=== PATIENT | male | born 1970 | race Caucasian/White ===

== ENCOUNTER 2020-09-08 19:22 | Inpatient (IN) | payer OTHER ==
[~2020-09-08] VITALS: Ht 182.9 cm; Wt 81.5 kg
[2020-09-08] MEDS ORDERED: NS 1,000 ML IV ONE (20:30)
[2020-09-08] MEDS ORDERED: MORPHINE 4 MG/ML 1ML VIAL/SYRINGE (J2270) IV ONE (20:30)
[2020-09-08 20:55] LABS: BASO % 0.4 % (0.0-1.0); EOS # 0.1 10^3/uL (0.0-0.5); EOS % 1.5 % (0.0-3.0); HEMATOCRIT 40.9 % (42.0-52.0); HEMOGLOBIN 14.1 g/dl (13.5-17.5); LYMPH # 1.3 10^3/uL (1.5-5.0); LYMPH % 19.4 % (24.0-44.0); MEAN CORPUSCULAR HEMOGLOBIN 32.3 pg (27.0-33.0); MEAN CORPUSCULAR HGB CONC 34.5 g/dl (32.0-36.5); MEAN CORPUSCULAR VOLUME 93.6 fl (80.0-96.0); MONO # 0.8 10^3/uL (0.0-0.8); MONO % 11.2 % (0.0-5.0); NEUTROPHILS # 4.6 10^3/uL (1.5-8.5); NEUTROPHILS % 67.2 % (36.0-66.0); PLATELET COUNT, AUTOMATED 251 10^3/uL (150-450); RED BLOOD COUNT 4.37 10^6/uL (4.30-6.10); WHITE BLOOD COUNT 6.8 10^3/uL (4.0-10.0)
[2020-09-08 21:14] LABS: ERYTHROCYTE SEDIMENTATION RATE 18 mm/hr (0-20)
[2020-09-08 21:25] LABS: ALBUMIN 3.6 GM/DL (3.2-5.2); ALT/SGPT 74 U/L (12-78); BILIRUBIN,DIRECT 0.2 MG/DL (0.0-0.2); BILIRUBIN,TOTAL 0.4 MG/DL (0.2-1.0); BLOOD UREA NITROGEN 17 MG/DL (7-18); C REACTIVE PROTEIN QUANTITATIV 1.96 MG/DL (0.00-0.30); CARBON DIOXIDE LEVEL 28 MEQ/L (21-32); CHLORIDE LEVEL 109 MEQ/L (98-107); CREATININE FOR GFR 1.13 MG/DL (0.70-1.30); GLOMERULAR FILTRATION RATE > 60.0 (>56); GLUCOSE, FASTING 117 MG/DL (70-100); POTASSIUM SERUM 3.7 MEQ/L (3.5-5.1); SODIUM LEVEL 141 MEQ/L (136-145); TOTAL PROTEIN 6.3 GM/DL (6.4-8.2)
--- NOTE | 2020-09-08 22:16 | REPVR ---
PROCEDURE INFORMATION: Exam: US Scrotum Exam date and time: 09/08/2020 9:25 PM Age: 50 years old Clinical indication: Groin pain and scrotum pain; Additional info: Swelling left testicle/groin/induration/discharge ? abscess TECHNIQUE: Imaging protocol: Real-time ultrasound of the scrotum and contents with color Doppler and image documentation. COMPARISON: No relevant prior studies available. FINDINGS: Right testicle: Normal measuring 4.8 x 2.5 x 3.0 cm. No mass. No torsion. Normal vascular flow. Left testicle: Normal measuring 4.2 x 2.7 x 2.7 cm. No mass. No torsion. Normal vascular flow. Epididymides: Right epididydmal multiple cysts largest cyst is measuring 8.6 mm . Superior to left testicle, multiple anechoic structures are seen largest 1 is measuring 5.6 x 1.8 x 3.7 cm with some internal mobile debris. Findings may represent spur mild to see with superimposed infection , clinical correlation and follow-up is recommended. Scrotum: Right scrotal wall is normal measuring 3.2 mm. Thickened left scrotal wall measuring 6.2 mm representing cellulitis. IMPRESSION: Superior to left testicle, multiple anechoic structures are seen largest 1 is measuring 5.6 x 1.8 x 3.7 cm with some internal mobile debris. Findings may represent spur mild to see with superimposed infection, clinical correlation and follow-up is recommended. Thickened left scrotal wall measuring 6.2 mm representing cellulitis. Electronically signed by: Teresa Erickson On 09/08/2020 22:16:02 PM
[2020-09-08] MEDS ORDERED: ERTAPENEM SODIUM 1 GM in NS MINI-BAG PLUS 50 ML IV ONE (23:00)
[2020-09-08] MEDS ORDERED: IBUP-1720 PO (23:16)
[2020-09-08] MEDS ORDERED: MEROPENEM INJ 2 GM in NS 100 ML IV SCH (23:45)
--- NOTE | 2020-09-08 23:46 | HPEPDOC ---
[facility] Medical History & Physical Date of Admission Sep 08, 2020 Date of Service: Sep 08, 2020 History and Physical Chief complaint: Who presents to the ER with left groin pain History of present illness: Patient is a 50-year-old male with no significant past medical history who is presented to the emergency room with left groin pain for the last 2-3 days. Patient reports that yesterday he began to notice swelling on the left side of the scrotum and groin. Patient noted that the area has become red and uncomfortable and has begun to experience some drainage/oozing. Patient denies any discomfort with urination or any penile discharge. Patient has not experience any prior skin infections and has not been on any antibiotics recently. Patient denies any headache but does experience some nausea and has had one episode of vomiting without any blood. Patient denies any chest pain, shortness of breath, cough, palpitations, abdominal pain, constipation or diarrhea. Patient reports his appetite has been fluctuating but denies any changes in his weight. 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 Review of Systems: 10 point review of systems complete, all negative otherwise stated in HPI Physical exam: - Vitals: BP [133/86], HR [91], RR [16], Sat [98%RA], Temp [97.9F] - General: Lying in bed, No acute distress, Speaking in full sentences, AAOx3 - HEENT: NC, AT, PERRLA - CVS: RRR, +S1S2 - Lungs: Fair air entry bilaterally, No appreciable wheezing / rales / rhonchi - Abdomen: Soft, Non-distended, Non-tender - : Left groin with area of induration / warmth / tenderness / drainage (serosanginous); scrotum without any significant tenderness on palpation / mild swelling on left lateral side - Extremities: No lower extremity edema, No calf tenderness - Neuro: No focal motor or sensory deficit - Skin: No visible rashes Labs: See below Imaging: Scrotal US 12/2: 1. Superior to left testicle, multiple anechoic structures are seen largest 1 is measuring 5.6 x 1.8 x 3.7 cm with some internal mobile debris. Findings may represent spur mild to see with superimposed infection, clinical correlation and follow-up is recommended. 2. Thickened left scrotal wall measuring 6.2 mm representing cellulitis. EKG: See below Assessment and Plan: Left groin abscess / cellulitis - Patient has reported groin pain, redness and discharge over the last 2-3 days - Patient remains hemodynamically stable and afebrile - Physical reveals area of induration, warmth and tenderness of his left groin - No leukocytosis - Imaging noted above - Will check lactic acid / Procalcitonin / blood cultures / MRSA screen / Wound cultures - Consulted Urology, Dr. Bowers; Case discussed; will keep NPO for likely drainage in AM and cover with broad spectrum antibiotics - Will cover with broad spectrum antibiotics; Vancomycin and Meropenem DVT prophylaxis - Will start Heparin Vital Signs Vital Signs Date Time Temp Pulse Resp B/P (MAP) Pulse Ox O2 Delivery O2 Flow Rate FiO2 09/08/20 21:00 97.9 91 16 133/86 98 Room Air Laboratory Data Labs 24H Laboratory Tests 2 09/08/20 19:37: Urine Color YELLOW, Urine Appearance HAZY, Urine pH 5.0, Urine Specific [place] 1.023, Urine Protein NEGATIVE, Urine Glucose (UA) NEGATIVE, Urine Ketones NEGATI VE, Urine Blood NEGATIVE, Urine Nitrite NEGATIVE, Urine Bilirubin NEGATIVE, Urine Urobilinogen 2.0H, Urine Leukocyte Esterase NEGATIVE, Urine WBC (Auto) 1, Urine RBC (Auto) 0, Urine Hyaline Casts (Auto) 1, Urine Bacteria (Auto) NEGATIVE, Urine Squamous Epithelial Cells 0, Urine Mucus (Auto) SMALL, Urine Sperm (Auto) 09/08/20 20:33: Immature Granulocyte % (Auto) 0.3, Neutrophils (%) (Auto) 67.2H, Lymphocytes (%) (Auto) 19.4L, Monocytes (%) (Auto) 11.2H, Eosinophils (%) (Auto) 1.5, Basophils (%) (Auto) 0.4, Neutrophils # (Auto) 4.6, Lymphocytes # (Auto) 1.3L, Monocytes # (Auto) 0.8, Eosinophils # (Auto) 0.1, Basophils # (Auto) 0.0, Nucleated Red Blood Cells % (auto) 0.0, Erythrocyte Sedimentation Rate 18, Anion Gap 4L, Glomerular Filtration Rate > 60.0, Lactic Acid Level 1.1, Calcium Level 9.0, Total Bilirubin 0.4, Direct Bilirubin 0.2, Aspartate Amino Transf (AST/SGOT) 27, Alanine Aminotransferase (ALT/SGPT) 74, Alkaline Phosphatase 116, C-Reactive Protein, Quantitative 1.96H, Total Protein 6.3L, Albumin 3.6, Albumin/Globulin Ratio 1.3 CBC/BMP Laboratory Tests 09/08/20 20:33 Microbiology Microbiology 09/08/20 Blood Culture, Received Pending 09/08/20 Gram Stain, Received Pending 09/08/20 Wound Culture, Received Pending 09/08/20 Blood Culture, Received Pending Home Medications Scheduled PRN Ibuprofen (Ibuprofen) 200 Mg Tablet, 400 MG PO Q6H PRN for PAIN Allergies Coded Allergies: No Known Allergies (Unverified , 09/08/20) JOHN ACUNA MD Sep 08, 2020 23:46
[2020-09-09] VITALS (8 sets, daily range): BP systolic 102–119; BP diastolic 63–79
[2020-09-09] MEDS ORDERED: VANCOMYCIN HCL 1,000 MG, VIAL MATE ADAPTER 1 EACH in D5W 250 ML IV ONE ×4 (02:00)
[2020-09-09] MEDS: HEPARIN SOD (PORCINE) 5000UNITS/ML 1ML VIAL/SYRINGE SC SCH ×5 (03:10→22:18)
[2020-09-09] MEDS: ACETAMINOPHEN TAB 650MG DOSE (2X325MG) PO PRN (03:43)
[2020-09-09 06:27] LABS: BASO % 0.6 % (0.0-1.0); EOS # 0.1 10^3/uL (0.0-0.5); EOS % 1.4 % (0.0-3.0); HEMATOCRIT 38.2 % (42.0-52.0); HEMOGLOBIN 12.9 g/dl (13.5-17.5); LYMPH # 0.9 10^3/uL (1.5-5.0); LYMPH % 17.9 % (24.0-44.0); MEAN CORPUSCULAR HEMOGLOBIN 32.1 pg (27.0-33.0); MEAN CORPUSCULAR HGB CONC 33.8 g/dl (32.0-36.5); MONO # 0.5 10^3/uL (0.0-0.8); MONO % 10.8 % (0.0-5.0); NEUTROPHILS # 3.4 10^3/uL (1.5-8.5); NEUTROPHILS % 68.9 % (36.0-66.0); PLATELET COUNT, AUTOMATED 222 10^3/uL (150-450); RED BLOOD COUNT 4.02 10^6/uL (4.30-6.10)
[2020-09-09 06:46] LABS: HEMOGLOBIN A1c 5.1 %
[2020-09-09 06:50] LABS: BLOOD UREA NITROGEN 14 MG/DL (7-18); C REACTIVE PROTEIN QUANTITATIV 1.53 MG/DL (0.00-0.30); CALCIUM LEVEL 8.5 MG/DL (8.5-10.1); CARBON DIOXIDE LEVEL 27 MEQ/L (21-32); CHLORIDE LEVEL 109 MEQ/L (98-107); CHOLESTEROL LEVEL 179 MG/DL (<200); CHOLESTEROL RISK RATIO 4.162 (<5); CREATININE FOR GFR 0.88 MG/DL (0.70-1.30); GLOMERULAR FILTRATION RATE > 60.0 (>56); GLUCOSE, FASTING 86 MG/DL (70-100); HDL CHOLESTEROL 43 MG/DL (>40); LDL CHOLESTEROL 120 MG/DL (<100); MAGNESIUM LEVEL 2.3 MG/DL (1.8-2.4); NON-HDL-C 136 MG/DL; SODIUM LEVEL 141 MEQ/L (136-145); TRIGLYCERIDES LEVEL 81 MG/DL (<150)
--- NOTE | 2020-09-09 07:30 | SMCUROLCON ---
Urology Consultation General Date of Consultation 09/09/20 Reason For Consultation This patient is seen for Abcess/Cellulitis Of Groin. History of Present Illness The patient is a 50-year-old male with no past medical history for urologic or genital issues. He states that over the weekend, he began to notice some slight discomfort and a lump in the left groin. Over the next few days the growths in the left groin increased in size and became very uncomfortable yesterday with some slight drainage. For this reason he presented to the emergency room for evaluation and was subsequently admitted for abscess. 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 On examination, he also has a left spermatocele which he claims has not been there before last weekend. 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 Allergies: None Medications: None Smoke: Never * Smoker: non-smoker Drugs: denies Medications Current Medications Current Medications Medications (Trade) Dose Ordered Sig/Juanita Route PRN Reason Start Time Stop Time Status Last Admin Dose Admin Acetaminophen (Tylenol Tab) 650 mg Q4H PRN PO PAIN OR FEVER 09/08/20 23:45 09/09/20 03:43 Heparin Sodium (Porcine) (Heparin) 5,000 units Q8H SC 09/08/20 06:00 Home Med (Med Rec Complete!) ASDIRECTED XX 09/08/20 23:30 09/08/20 23:17 DC Meropenem 1 gm/IV Miscellaneous Supplies 50 ml @ 100 mls/hr Q8H IV 09/09/20 11:00 Meropenem 2 gm/ Sodium Chloride 100 ml @ 200 mls/hr Q8H IV 09/08/20 23:45 09/09/20 00:26 DC Vancomycin HCl 1000 mg/IV Miscellaneous Supplies 1 each/ Dextrose 270 ml @ 270 mls/hr Q12H IV 09/09/20 12:00 Allergies Allergies: Coded Allergies: No Known Allergies (Unverified , 09/08/20) Review of Systems General: Reports: Normal Appetite; Denies: Fatigue, Malaise Constitutional: Denies: Fever, Chills, Sweats, Weakness, Malaise Eyes: Denies: Pain, Vision change ENT: Denies: Head Aches, Sore Throat, Epistaxis Skin: Denies: Rash, Lesions, Breakdown, Nail Changes Pulmonary: Denies: Dyspnea, Cough Cardiovascular: Denies Chest Pain, Denies Palpitations Gastrointestinal: Denies: Nausea, Vomiting, Abdominal Pain Genitourinary: Denies: Dysuria, Frequency, Incontinence, Hematuria Hematologic: Denies: Bruising, Bleeding Excessively Endocrine: Denies: Polydipsia, Polyphagia, Polyuria Musculoskeletal: Denies: Neck Pain, Back Pain Neurological: Denies: Weakness, Numbness, Incoordination, Change in Speech Psych: Reports: Mood Normal; Denies: Anxiety, Depression Physical Examination General Exam: Alert, No Acute Distress EYE EXAM: PERRLA, Conjunctiva & lids normal, EOMI; No: Sclera icteric ENT EXAM: Atraumatic, Mucous membr. moist/pink, Pharynx Normal Neck Exam: Supple; No: JVD, thyromegaly Chest Exam: Clear to auscultation, Normal air movement Heart Exam: Rate Normal, Regular Rhythm, Normal S1, Normal S2; No: Murmurs, Rubs Abdomen Exam: Normal Bowel Sounds, Soft; No: Tenderness, Hepatospenomegaly Male Exam: Normal Genital Exam, Tenderness; No: Lesions, Edema, Erythema, Discharge, Mass, Hernia, Normal Sphincter Tone Male Exam Penis is circumcised Scrotum shows some left sciatica and enlargement from a spermatocele that is nontender. In the inferior portion of the scrotum, there is some skin thickening. Just lateral to the scrotum on the inner thigh and inguinal area there is some inflammation with abscess and a small amount of drainage from the swelling. Extremity Exam: Normal Pulses; No: Clubbing, Cyanosis, Edema Skin Exam: Nl turgor and temperature; No: Rash, Breakdown Neuro Exam: Normal Gait, Normal Speech, Cranial Nerves 3-12 NL, Reflexes 2+ Psych Exam: Mental status NL, Mood NL, Oriented x 3 Vital Signs/I&O Vital Signs Date Time Temp Pulse Resp B/P (MAP) Pulse Ox O2 Delivery O2 Flow Rate FiO2 09/09/20 06:00 98.7 69 18 113/77 (89) 97 09/09/20 02:55 Room Air I&O- Last 24 Hours up to 6 AM 09/09/20 05:59 Intake Total 1590 ml Output Total 400 ml Balance 1190 ml Laboratory Data 24H Labs Laboratory Tests 2 09/08/20 19:37: Urine Color YELLOW, Urine Appearance HAZY, Urine pH 5.0, Urine Specific [place] 1.023, Urine Protein NEGATIVE, Urine Glucose (UA) NEGATIVE, Urine Ketones NEGATIVE, Urine Blood NEGATIVE, Urine Nitrite NEGATIVE, Urine Bilirubin NEGATIVE, Urine Urobilinogen 2.0H, Urine Leukocyte Esterase NEGATIVE, Urine WBC (Auto) 1, Urine RBC (Auto) 0, Urine Hyaline Casts (Auto) 1, Urine Bacteria (Auto) NEGATIVE, Urine Squamous Epithelial Cells 0, Urine Mucus (Auto) SMALL, Urine Sperm (Auto) 09/08/20 20:33: Immature Granulocyte % (Auto) 0.3, Neutrophils (%) (Auto) 67.2H, Lymphocytes (%) (Auto) 19.4L, Monocytes (%) (Auto) 11.2H, Eosinophils (%) (Auto) 1.5, Basophils (%) (Auto) 0.4, Neutrophils # (Auto) 4.6, Lymphocytes # (Auto) 1.3L, Monocytes # (Auto) 0.8, Eosinophils # (Auto) 0.1, Basophils # (Auto) 0.0, Nucleated Red Blood Cells % (auto) 0.0, Erythrocyte Sedimentation Rate 18, Anion Gap 4L, Glomerular Filtration Rate > 60.0, Lactic Acid Level 1.1, Calcium Level 9.0, Total Bilirubin 0.4, Direct Bilirubin 0.2, Aspartate Amino Transf (AST/SGOT) 27, Alanine Aminotransferase (ALT/SGPT) 74, Alkaline Phosphatase 116, C-Reactive Protein, Quantitative 1.96H, Total Protein 6.3L, Albumin 3.6, Albumin/Globulin Ratio 1.3 09/08/20 23:30: Coronavirus (COVID-19)(PCR) NEGATIVE 09/08/20 23:58: 09/09/20 03:46: Methicillin-Resist S.aureus DNA PCR NOT DETECTED 09/09/20 05:29: Immature Granulocyte % (Auto) 0.4, Neutrophils (%) (Auto) 68.9H, Lymphocytes (%) (Auto) 17.9L, Monocytes (%) (Auto) 10.8H, Eosinophils (%) (Auto) 1.4, Basophils (%) (Auto) 0.6, Neutrophils # (Auto) 3.4, Lymphocytes # (Auto) 0.9L, Monocytes # (Auto) 0.5, Eosinophils # (Auto) 0.1, Basophils # (Auto) 0.0, Nucleated Red Blood Cells % (auto) 0.0, Anion Gap 5L, Glomerular Filtration Rate > 60.0, Estimated Mean Plasma Glucose 100, Hemoglobin A1c 5.1, Calcium Level 8.5, Magnesium Level 2.3, C-Reactive Protein, Quantitative 1.53H, Triglycerides Level 81, Total Cholesterol 179, LDL Cholesterol 120H, Non-HDL Cholesterol (LDL + VLDL) 136, Total HDL Cholesterol 43, Cholesterol/HDL Ratio 4.162 CBC/BMP Laboratory Tests 09/08/20 20:33 09/09/20 05:29 Microbiology Microbiology 09/08/20 Blood Culture, Received Pending 09/08/20 Gram Stain, Received Pending 09/08/20 Wound Culture, Received Pending 09/08/20 Blood Culture, Received Pending Assessment 1. Left groin abscess The abscess is draining slightly now but will need to be incised and drained in the operating room later today. In the meantime, the patient will continue antibiotics 2. Left spermatocele At this point, I'm not convinced that the spermatoceles part of the in flammation process. It will be drained while in the operating room. If the fluid is normal no further action will be taken. If the fluid appears infected, he will need a spermatocelectomy at the same time. Plan I'll take the patient to the operating room later this afternoon for incision and drainage of the left groin abscess, aspiration of spermatocele and possible spermatocelectomy. In the meantime, the patient will stay on his IV antibiotics and intravenous fluids will be started. Time Spent on Consult: Time Spent / Consult (Minutes): 60 JORGE L JAMES MD Sep 09, 2020 07:30
[2020-09-09] MEDS ORDERED: ceFAZolin SOD 2 GM in IV 1 EA IV ONE (08:00)
[2020-09-09] MEDS: LR 1,000 ML IV SCH (08:06)
[2020-09-09] MEDS: VANCOMYCIN HCL 1,000 MG, VIAL MATE ADAPTER 1 EACH in D5W 250 ML IV SCH ×2 (11:57→23:39)
[2020-09-09] MEDS: MEROPENEM INJ 1 GM in IV 1 EA IV SCH ×2 (13:14→20:12)
--- NOTE | 2020-09-09 15:22 | IPNPDOC ---
Date Seen The patient was seen on 09/09/20. Progress Note SUBJECTIVE: OBJECTIVE Physical exam: Vitals: Please see below General: Lying in bed, No acute distress, Speaking in full sentences, AAOx3 HEENT: NC, AT, PERRLA CVS: RRR, +S1S2 Lungs: Fair air entry bilaterally, No appreciable wheezing / rales / rhonchi Abdomen: Soft, Non-distended, Non-tender : Left groin with area of induration, erythema and tenderness- slightly improved . No incr drainage ; scrotum without any significant tenderness on palpation / mild swelling on left lateral side Extremities: No lower extremity edema, No calf tenderness Neuro: No focal motor or sensory deficit Skin: No visible rashes Labs: See below Imaging: Scrotal US 09/08: 1. Superior to left testicle, multiple anechoic structures are seen largest 1 is measuring 5.6 x 1.8 x 3.7 cm with some internal mobile debris. Findings may represent spur mild to see with superimposed infection, clinical correlation and follow-up is recommended. 2. Thickened left scrotal wall measuring 6.2 mm representing cellulitis. ASSESSMENT AND PLAN: #Left groin abscess / cellulitis -Pain controlled, erythema and induration improved -WBC wnl - Imaging noted above - F/u blood cultures / MRSA screen / Wound cultures - Urology, Dr. Bowers consulted and will take to OR today - C/w Vancomycin and Meropenem, pain control #Left spermatocele -To be drained in OR also -Per urology, if the fluid appears infected, he will need a spermatocelectomy at the same time. #DVT prophylaxis - Will start Heparin DISPOSITION: OR today. Plan is discharge home when medically improved VS, I&O, 24H, [place] Vital Signs/I&O Vital Signs Date Time Temp Pulse Resp B/P (MAP) Pulse Ox O2 Delivery O2 Flow Rate FiO2 09/09/20 13:46 98.0 77 17 116/77 (90) 96 Room Air I&O- Last 24 Hours up to 6 AM 09/09/20 06:00 Intake Total 1590 ml Output Total 600 ml Balance 990 ml Laboratory Data 24H LABS Laboratory Tests 2 09/08/20 19:37: Urine Color YELLOW, Urine Appearance HAZY, Urine pH 5.0, Urine Specific [place] 1.023, Urine Protein NEGATIVE, Urine Glucose (UA) NEGATIVE, Urine Ketones NEGATIVE, Urine Blood NEGATIVE, Urine Nitrite NEGATIVE, Urine Bilirubin NEGATIVE, Urine Urobilinogen 2.0H, Urine Leukocyte Esterase NEGATIVE, Urine WBC (Auto) 1, Urine RBC (Auto) 0, Urine Hyaline Casts (Auto) 1, Urine Bacteria (Auto) NEGATIVE, Urine Squamous Epithelial Cells 0, Urine Mucus (Auto) SMALL, Urine Sperm (Auto) 09/08/20 20:33: Immature Granulocyte % (Auto) 0.3, Neutrophils (%) (Auto) 67.2H, Lymphocytes (%) (Auto) 19.4L, Monocytes (%) (Auto) 11.2H, Eosinophils (%) (Auto) 1.5, Basophils (%) (Auto) 0.4, Neutrophils # (Auto) 4.6, Lymphocytes # (Auto) 1.3L, Monocytes # (Auto) 0.8, Eosinophils # (Auto) 0.1, Basophils # (Auto) 0.0, Nucleated Red Blood Cells % (auto) 0.0, Erythrocyte Sedimentation Rate 18, Anion Gap 4L, Glomerular Filtration Rate > 60.0, Lactic Acid Level 1.1, Calcium Level 9.0, Total Bilirubin 0.4, Direct Bilirubin 0.2, Aspartate Amino Transf (AST/SGOT) 27, Alanine Aminotransferase (ALT/SGPT) 74, Alkaline Phosphatase 116, C-Reactive Protein, Quantitative 1.96H, Total Protein 6.3L, Albumin 3.6, Albumin/Globulin Ratio 1.3 09/08/20 23:30: Coronavirus (COVID-19)(PCR) NEGATIVE 09/08/20 23:58: Procalcitonin <0.05 09/09/20 03:46: Methicillin-Resist S.aureus DNA PCR NOT DETECTED 09/09/20 05:29: Immature Granulocyte % (Auto) 0.4, Neutrophils (%) (Auto) 68.9H, Lymphocytes (%) (Auto) 17.9L, Monocytes (%) (Auto) 10.8H, Eosinophils (%) (Auto) 1.4, Basophils (%) (Auto) 0.6, Neutrophils # (Auto) 3.4, Lymphocytes # (Auto) 0.9L, Monocytes # (Auto) 0.5, Eosinophils # (Auto) 0.1, Basophils # (Auto) 0.0, Nucleated Red Blood Cells % (auto) 0.0, Anion Gap 5L, Glomerular Filtration Rate > 60.0, Estimated Mean Plasma Glucose 100, Hemoglobin A1c 5.1, Calcium Level 8.5, Magnesium Level 2.3, C-Reactive Protein, Quantitative 1.53H, Triglycerides Level 81, Total Cholesterol 179, LDL Cholesterol 120H, Non-HDL Cholesterol (LDL + VLDL) 136, Total HDL Cholesterol 43, Cholesterol/HDL Ratio 4.162 CBC/BMP Laboratory Tests 09/08/20 20:33 09/09/20 05:29 Microbiology Microbiology 09/08/20 Blood Culture, Received Pending 09/08/20 Gram Stain - Final, Resulted 09/08/20 Wound Culture, Resulted Pending 09/08/20 Blood Culture, Received Pending Current Medications Current Medications Medications (Trade) Dose Ordered Sig/Juanita Route PRN Reason Start Time Stop Time Status Last Admin Dose Admin Acetaminophen (Tylenol Tab) 650 mg Q4H PRN PO PAIN OR FEVER 09/08/20 23:45 09/09/20 03:43 Heparin Sodium (Porcine) (Heparin) 5,000 units Q8H SC 09/08/20 06:00 Home Med (Med Rec Complete!) ASDIRECTED XX 09/08/20 23:30 09/08/20 23:17 DC Lactated Ringer's 1,000 ml @ 30 mls/hr Q24H IV 09/09/20 07:45 09/09/20 08:06 Meropenem 1 gm/IV Miscellaneous Supplies 50 ml @ 100 mls/hr Q8H IV 09/09/20 11:00 09/09/20 13:14 Meropenem 2 gm/ Sodium Chloride 100 ml @ 200 mls/hr Q8H IV 09/08/20 23:45 09/09/20 00:26 DC Vancomycin HCl 1000 mg/IV Miscellaneous Supplies 1 each/ Dextrose 270 ml @ 270 mls/hr Q12H IV 09/09/20 12:00 09/09/20 11:57 Allergies Coded Allergies: No Known Allergies (Unverified , 09/08/20) Nunu Hatfield MD Sep 09, 2020 15:22
[2020-09-09] MEDS ORDERED: BACITRACIN OINTMENT 30GM TUBE As Ordered ONE (17:50)
[2020-09-09] MEDS ORDERED: LIDOCAINE 2% INJ 100 MG/5 ML SYRINGE As Ordered ONE (18:02)
[2020-09-09] MEDS ORDERED: ONDANSETRON 4MG/2ML VIAL As Ordered ONE (18:02)
[2020-09-09] MEDS ORDERED: dexameTHASONE 4 MG/ML 1ML VIAL (J1100 PER 1MG) As Ordered ONE (18:02)
[2020-09-09] MEDS ORDERED: propofoL 200 MG/20 ML VIAL As Ordered ONE (18:02)
[2020-09-09] MEDS ORDERED: fentaNYL 100 MCG/2 ML INJECTION (J3010) As Ordered ONE (18:02)
[2020-09-09] MEDS ORDERED: MIDAZOLAM INJ 2MG/2ML VIAL (J2250 PER 1MG) As Ordered ONE (18:03)
[2020-09-09] MEDS ORDERED: LIDOCAINE 2% 100MG/5ML SDV (FOR ANES.) As Ordered ONE (18:04)
[2020-09-09] MEDS ORDERED: LIDOCAINE 5% OINT 30 GM As Ordered ONE (18:09)
[2020-09-09] MEDS ORDERED: BUPIVACAINE HCL 0.25% 30ML VIAL As Ordered ONE (18:24)
[2020-09-09] MEDS ORDERED: ACETAMINOPHEN 1000MG 100ML IV BTL (OFIRMEV) (J0131 PER 10MG) As Ordered ONE (18:40)
--- NOTE | 2020-09-09 19:03 | ROOPDOC ---
[facility] Report Of Operation Report of Operation DATE OF PROCEDURE: 09/09/20 PREPROCEDURE DIAGNOSES: Left groin abscess and possible infected spermatocele POSTPROCEDURE DIAGNOSES: Left groin abscess and sterile spermatocele PROCEDURE: Incision and drainage left groin abscess and spermatocele aspiration SURGEON: King Storey MD BLOOD BANK LABORATORY PROFESSIONAL: None ANESTHESIA: Gen. ESTIMATED BLOOD LOSS: Approximately less than 5 mL. COMPLICATIONS: None REMARKS: Specimen: Aerobic and anaerobic cultures from abscess cavity INDICATION FOR PROCEDURE: This is a 50-year-old white male with presented to the [facility] emergency room for evaluation of a draining left lump in the left inguinal area. This is found to be a left groin abscess. He also had a cystic structure in the scrotum that was thought by ultrasound to be infected. He is several back to the operating room for incision and drainage as well as aspiration of the spermatocele and possible spermatocelectomy. DESCRIPTION OF PROCEDURE: The patient was placed on the table in supine position, given general anesthesia, prepped with Betadine paint, draped in a sterile manner and timeout was performed. A #16 H needle was then used to aspirate the spermatocele. The fluid was sterile. The left groin abscess cavity was then exposed and anesthetized with quarter percent Marcaine and incised with a #15 scalpel. Cultures were taken anaerobic and aerobic and the cavity was irrigated and packed with iodoform gauze. A scrotal compression dressing was then applied scrotal support and the patient was awakened and sent to recovery room stable condition having tolerated the procedure well. KING STOREY MD Sep 09, 2020 19:03
[2020-09-09] MEDS ORDERED: fentaNYL 100 MCG/2 ML INJECTION (J3010) IV PRN (19:45)
[2020-09-09] MEDS ORDERED: LR 1,000 ML IV SCH (19:45)
[2020-09-09] MEDS ORDERED: oxyCODONE 5MG TAB PO PRN (19:45)
[2020-09-09] MEDS ORDERED: ONDANSETRON 4MG/2ML VIAL IV PRN (19:45)
[2020-09-10 02:00] VITALS: BP 102/68
[2020-09-10] MEDS: MEROPENEM INJ 1 GM in IV 1 EA IV SCH (02:33)
[2020-09-10] MEDS: ACETAMINOPHEN TAB 650MG DOSE (2X325MG) PO PRN ×2 (05:44→21:17)
[2020-09-10 06:00] VITALS: BP 107/67
[2020-09-10] MEDS: HEPARIN SOD (PORCINE) 5000UNITS/ML 1ML VIAL/SYRINGE SC SCH ×3 (06:00→21:17)
[2020-09-10 06:59] LABS: BASO % 0.1 % (0.0-1.0); HEMATOCRIT 39.2 % (42.0-52.0); HEMOGLOBIN 13.7 g/dl (13.5-17.5); LYMPH # 0.7 10^3/uL (1.5-5.0); LYMPH % 7.1 % (24.0-44.0); MEAN CORPUSCULAR HEMOGLOBIN 32.5 pg (27.0-33.0); MEAN CORPUSCULAR HGB CONC 34.9 g/dl (32.0-36.5); MEAN CORPUSCULAR VOLUME 92.9 fl (80.0-96.0); MONO # 0.5 10^3/uL (0.0-0.8); MONO % 5.3 % (0.0-5.0); NEUTROPHILS # 8.5 10^3/uL (1.5-8.5); PLATELET COUNT, AUTOMATED 231 10^3/uL (150-450); RED BLOOD COUNT 4.22 10^6/uL (4.30-6.10); WHITE BLOOD COUNT 9.8 10^3/uL (4.0-10.0)
[2020-09-10 07:26] LABS: BLOOD UREA NITROGEN 10 MG/DL (7-18); C REACTIVE PROTEIN QUANTITATIV 1.22 MG/DL (0.00-0.30); CALCIUM LEVEL 8.7 MG/DL (8.5-10.1); CARBON DIOXIDE LEVEL 27 MEQ/L (21-32); CHLORIDE LEVEL 108 MEQ/L (98-107); CREATININE FOR GFR 0.95 MG/DL (0.70-1.30); GLOMERULAR FILTRATION RATE > 60.0 (>56); GLUCOSE, FASTING 110 MG/DL (70-100); MAGNESIUM LEVEL 2.1 MG/DL (1.8-2.4); POTASSIUM SERUM 4.2 MEQ/L (3.5-5.1); SODIUM LEVEL 139 MEQ/L (136-145)
[2020-09-10] MEDS: LR 1,000 ML IV SCH (07:45)
[2020-09-10 10:00] VITALS: BP 120/75
--- NOTE | 2020-09-10 12:36 | IPNPDOC ---
Subjective Review oF Systems Chief Complaint The patient is a 50-year-old male admitted with a reason for visit of Abcess/Cellulitis Of Groin. General: Reports: Normal Appetite; Denies: Fatigue, Malaise Constitutional: Denies: Fever, Chills, Sweats, Weakness, Malaise Eyes: Denies: Pain, Vision change ENT: Denies: Head Aches, Sore Throat, Epistaxis Genitourinary: Denies: Dysuria, Frequency, Incontinence, Hematuria Musculoskeletal: Denies: Neck Pain, Back Pain Objective Physical Examination General Exam: Alert, No Acute Distress Eye Exam: PERRLA, Conjunctiva & lids normal, EOMI; No: Sclera icteric ENT EXAM: Atraumatic, Mucous membr. moist/pink, Pharynx Normal Neck Exam: Supple; No: JVD, thyromegaly ABDOMEN EXAM: Normal bowel sounds, Soft; No: Tenderness, Hepatospenomegaly Male Exam: Normal Genital Exam Extremity Exam: Tenderness; No: Clubbing, Cyanosis, Edema Other physical findings Patient is much more comfortable today. The left groin incision area is clean with no further accumulation of pus. Sutures are pending from procedure yesterday. Vital Signs/I&O Vital Signs Date Time Temp Pulse Resp B/P (MAP) Pulse Ox O2 Delivery O2 Flow Rate FiO2 09/10/20 10:00 96.9 82 18 120/75 (90) 97 Room Air 09/09/20 19:00 10 I&O- Last 24 Hours up to 6 AM 09/10/20 06:00 Intake Total 1820 ml Output Total 755 ml Balance 1065 ml Laboratory Data Labs 24H Laboratory Tests 2 09/10/20 06:43: Immature Granulocyte % (Auto) 0.5, Neutrophils (%) (Auto) 87.0H, Lymphocytes (%) (Auto) 7.1L, Monocytes (%) (Auto) 5.3H, Eosinophils (%) (Auto) 0.0, Basophils (%) (Auto) 0.1, Neutrophils # (Auto) 8.5, Lymphocytes # (Auto) 0.7L, Monocytes # (Auto) 0.5, Eosinophils # (Auto) 0.0, Basophils # (Auto) 0.0, Nucleated Red Blood Cells % (auto) 0.0, Anion Gap 4L, Glomerular Filtration Rate > 60.0, Calcium Level 8.7, Magnesium Level 2.1, C-Reactive Protein, Quantitative 1.22H 09/10/20 11:11: Vancomycin Level Trough 10.5 CBC/BMP Laboratory Tests 09/10/20 06:43 Microbiology Microbiology 09/09/20 Abscess Culture, Received Pending 09/09/20 Anaerobic Culture, Received Pending 09/08/20 Blood Culture - Preliminary, Resulted No growth after 24 hours . All specim... 09/08/20 Gram Stain - Final, Complete 09/08/20 Wound Culture - Final, Complete Staphylococcus Capitis 09/08/20 Blood Culture - Preliminary, Resulted No growth after 24 hours . All specim... Assessment/Plan Date Seen The patient was seen on 09/10/20. Plan/VTE VTE Prophylaxis Ordered?: No Plan Patient will continue IV antibiotics today and dressing changes once daily. He may be discharged home tomorrow on oral medications pending the results of the final cultures. He'll be seen back in the clinic in about 2 weeks for follow-up management. JORGE L JAMES MD Sep 10, 2020 12:36
[2020-09-10] MEDS: VANCOMYCIN HCL 1,000 MG, VIAL MATE ADAPTER 1 EACH in D5W 250 ML IV SCH ×2 (12:57→21:16)
[2020-09-10 14:00] VITALS: BP 119/75
--- NOTE | 2020-09-10 17:40 | IPNPDOC ---
Date Seen The patient was seen on 09/10/20. Progress Note SUBJECTIVE: POD 1 I&D left groin abscess, spermatocele aspiration. Initial culture from ED + for staphylococcus capitis with sensitivities available. OR cultures pending. Pain 5/10, sharp, controlled with pain medication. Packing in place, urology saw later in day. Denies chest pain, fevers, chills, n/v/d. OBJECTIVE Physical exam: Vitals: Please see below General: Lying in bed, No acute distress, Speaking in full sentences, AAOx3 HEENT: NC, AT, PERRLA CVS: RRR, +S1S2 Lungs: Fair air entry bilaterally, No appreciable wheezing / rales / rhonchi Abdomen: Soft, Non-distended, Non-tender : Left groin with area of incision, induration, erythema and tenderness- packing in place . No incr drainage ; scrotum- mild swelling on left lateral side Extremities: No lower extremity edema, No calf tenderness Neuro: No focal motor or sensory deficit Skin: No visible rashes Labs: See below Imaging: Scrotal US 09/08: 1. Superior to left testicle, multiple anechoic structures are seen largest 1 is measuring 5.6 x 1.8 x 3.7 cm with some internal mobile debris. Findings may represent spur mild to see with superimposed infection, clinical correlation and follow-up is recommended. 2. Thickened left scrotal wall measuring 6.2 mm representing cellulitis. ASSESSMENT AND PLAN: #Left groin abscess / cellulitis -POD 1 incision and drainage left groin abscess -Pain controlled, erythema and induration improved, packing in place -Initial wound cx: Staph capitis -OR cultures pending. -BCx NG, MRSA neg -WBC wnl - Urology, Dr. Storey ok with discharge in the AM with instructions on wound care. Will want to follow up in clinic in two weeks. - C/w Vancomycin IV overnight, pain control #Left spermatocele -POD 1 spermatocele aspiration- appeared sterile -F/u as mentioned above with urology #DVT prophylaxis - Heparin DISPOSITION: Plan is discharge home likely in AM. VS, I&O, 24H, Fishbone Vital Signs/I&O Vital Signs Date Time Temp Pulse Resp B/P (MAP) Pulse Ox O2 Delivery O2 Flow Rate FiO2 09/10/20 14:00 96.8 84 16 119/75 (90) 98 Room Air 09/09/20 19:00 10 I&O- Last 24 Hours up to 6 AM 09/10/20 06:00 Intake Total 1820 ml Output Total 755 ml Balance 1065 ml Laboratory Data 24H LABS Laboratory Tests 2 09/10/20 06:43: Immature Granulocyte % (Auto) 0.5, Neutrophils (%) (Auto) 87.0H, Lymphocytes (%) (Auto) 7.1L, Monocytes (%) (Auto) 5.3H, Eosinophils (%) (Auto) 0.0, Basophils (%) (Auto) 0.1, Neutrophils # (Auto) 8.5, Lymphocytes # (Auto) 0.7L, Monocytes # (Auto) 0.5, Eosinophils # (Auto) 0.0, Basophils # (Auto) 0.0, Nucleated Red Blood Cells % (auto) 0.0, Anion Gap 4L, Glomerular Filtration Rate > 60.0, Calcium Level 8.7, Magnesium Level 2.1, C-Reactive Protein, Quantitative 1.22H 09/10/20 11:11: Vancomycin Level Trough 10.5 CBC/BMP Laboratory Tests 09/10/20 06:43 Microbiology Microbiology 09/09/20 Abscess Culture, Received Pending 09/09/20 Anaerobic Culture, Received Pending 09/08/20 Blood Culture - Preliminary, Resulted No growth after 24 hours . All specim... 09/08/20 Gram Stain - Final, Complete 09/08/20 Wound Culture - Final, Complete Staphylococcus Capitis 09/08/20 Blood Culture - Preliminary, Resulted No growth after 24 hours . All specim... Current Medications Current Medications Medications (Trade) Dose Ordered Sig/Juanita Route PRN Reason Start Time Stop Time Status Last Admin Dose Admin Acetaminophen (Tylenol Tab) 650 mg Q4H PRN PO PAIN OR FEVER 09/08/20 23:45 09/10/20 05:44 Fentanyl Citrate (Sublimaze) 25 mcg Q5MP PRN IV PAIN LEVEL 5-10 09/09/20 19:45 09/09/20 20:45 DC Heparin Sodium (Porcine) (Heparin) 5,000 units Q8H SC 09/08/20 06:00 09/10/20 13:00 Home Med (Med Rec Complete!) ASDIRECTED XX 09/08/20 23:30 09/08/20 23:17 DC Lactated Ringer's 1,000 ml @ 30 mls/hr Q24H IV 09/09/20 07:45 09/09/20 08:06 Lactated Ringer's 1,000 ml @ 100 mls/hr Q10H IV 09/09/20 19:45 09/09/20 20:45 DC Meropenem 1 gm/IV Miscellaneous Supplies 50 ml @ 100 mls/hr Q8H IV 09/09/20 11:00 09/10/20 09:43 DC 09/10/20 02:33 Meropenem 2 gm/ Sodium Chloride 100 ml @ 200 mls/hr Q8H IV 09/08/20 23:45 09/09/20 00:26 DC Ondansetron HCl (ZOFRAN INJection) 4 mg Q4HP PRN IV NAUSEA OR VOMITING 09/09/20 19:45 09/09/20 20:45 DC Oxycodone HCl (Roxicodone, Oxyir) 5 mg ASDIRECTED PRN PO PAIN LEVEL 1-4 09/09/20 19:45 09/09/20 20:45 DC Vancomycin HCl 1000 mg/IV Miscellaneous Supplies 1 each/ Dextrose 270 ml @ 270 mls/hr Q12H IV 09/09/20 12:00 09/10/20 12:02 DC 09/09/20 23:39 Vancomycin HCl 1000 mg/IV Miscellaneous Supplies 1 each/ Dextrose 270 ml @ 270 mls/hr Q8H IV 09/10/20 12:00 09/10/20 12:57 Allergies Coded Allergies: No Known Allergies (Unverified , 09/08/20) Nunu Hatfield MD Sep 10, 2020 17:40
[2020-09-10 18:00] VITALS: BP 121/75
[2020-09-10 22:00] VITALS: BP 121/80
[2020-09-11] MEDS: VANCOMYCIN HCL 1,000 MG, VIAL MATE ADAPTER 1 EACH in D5W 250 ML IV SCH ×2 (04:38→12:00)
[2020-09-11] MEDS: HEPARIN SOD (PORCINE) 5000UNITS/ML 1ML VIAL/SYRINGE SC SCH ×2 (05:09→12:30)
[2020-09-11 06:00] VITALS: BP 124/84
[2020-09-11 06:16] LABS: BASO % 0.5 % (0.0-1.0); EOS # 0.1 10^3/uL (0.0-0.5); EOS % 1.2 % (0.0-3.0); HEMATOCRIT 40.4 % (42.0-52.0); HEMOGLOBIN 14.2 g/dl (13.5-17.5); LYMPH # 1.5 10^3/uL (1.5-5.0); LYMPH % 26.7 % (24.0-44.0); MEAN CORPUSCULAR HEMOGLOBIN 33.4 pg (27.0-33.0); MEAN CORPUSCULAR HGB CONC 35.1 g/dl (32.0-36.5); MEAN CORPUSCULAR VOLUME 95.1 fl (80.0-96.0); MONO # 0.5 10^3/uL (0.0-0.8); MONO % 9.2 % (0.0-5.0); NEUTROPHILS # 3.6 10^3/uL (1.5-8.5); NEUTROPHILS % 61.9 % (36.0-66.0); PLATELET COUNT, AUTOMATED 242 10^3/uL (150-450); RED BLOOD COUNT 4.25 10^6/uL (4.30-6.10); WHITE BLOOD COUNT 5.8 10^3/uL (4.0-10.0)
[2020-09-11 06:34] LABS: BLOOD UREA NITROGEN 19 MG/DL (7-18); C REACTIVE PROTEIN QUANTITATIV 1.62 MG/DL (0.00-0.30); CALCIUM LEVEL 8.4 MG/DL (8.5-10.1); CARBON DIOXIDE LEVEL 30 MEQ/L (21-32); CHLORIDE LEVEL 108 MEQ/L (98-107); CREATININE FOR GFR 1.02 MG/DL (0.70-1.30); GLOMERULAR FILTRATION RATE > 60.0 (>56); GLUCOSE, FASTING 106 MG/DL (70-100); MAGNESIUM LEVEL 2.2 MG/DL (1.8-2.4); SODIUM LEVEL 142 MEQ/L (136-145)
[2020-09-11] MEDS ORDERED: CLIN150C14 PO (08:56)
[2020-09-11] MEDS ORDERED: PROB250C PO (08:56)
--- NOTE | 2020-09-11 09:23 | IPNPDOC ---
Subjective Review oF Systems Chief Complaint The patient is a 50-year-old male admitted with a reason for visit of Abcess/Cellulitis Of Groin. General: Reports: Normal Appetite; Denies: Fatigue, Malaise Constitutional: Denies: Fever, Chills, Sweats, Weakness, Malaise Eyes: Denies: Pain, Vision change ENT: Denies: Head Aches, Sore Throat, Epistaxis Skin: Denies: Rash, Lesions, Breakdown, Nail Changes Genitourinary: Denies: Dysuria, Frequency, Incontinence, Hematuria Objective Physical Examination General Exam: Alert, No Acute Distress Eye Exam: PERRLA, Conjunctiva & lids normal, EOMI; No: Sclera icteric ENT EXAM: Atraumatic, Mucous membr. moist/pink, Pharynx Normal Neck Exam: Supple; No: JVD, thyromegaly ABDOMEN EXAM: Normal bowel sounds, Soft; No: Tenderness, Hepatospenomegaly Male Exam: Normal Genital Exam Extremity Exam: Tenderness; No: Clubbing, Cyanosis, Edema Other physical findings Groin incision is healing well. Patient has much less discomfort now. Vital Signs/I&O Vital Signs Date Time Temp Pulse Resp B/P (MAP) Pulse Ox O2 Delivery O2 Flow Rate FiO2 09/11/20 06:00 97.3 67 18 124/84 (97) 96 Room Air 09/09/20 19:00 10 I&O- Last 24 Hours up to 6 AM 09/11/20 06:00 Intake Total 1920 ml Output Total 1725 ml Balance 195 ml Laboratory Data Labs 24H Laboratory Tests 2 09/10/20 11:11: Vancomycin Level Trough 10.5 09/11/20 05:25: Immature Granulocyte % (Auto) 0.5, Neutrophils (%) (Auto) 61.9, Lymphocytes (%) (Auto) 26.7, Monocytes (%) (Auto) 9.2H, Eosinophils (%) (Auto) 1.2, Basophils (%) (Auto) 0.5, Neutrophils # (Auto) 3.6, Lymphocytes # (Auto) 1.5, Monocytes # (Auto) 0.5, Eosinophils # (Auto) 0.1, Basophils # (Auto) 0.0, Nucleated Red Blood Cells % (auto) 0.0, Anion Gap 4L, Glomerular Filtration Rate > 60.0, Calcium Level 8.4L, Magnesium Level 2.2, C-Reactive Protein, Quantitative 1.62H CBC/BMP Laboratory Tests 09/11/20 05:25 Microbiology Microbiology 09/09/20 Abscess Culture, Received Pending 09/09/20 Anaerobic Culture, Received Pending 09/08/20 Blood Culture - Preliminary, Resulted No Growth after 48 hours. All Specime... 09/08/20 Gram Stain - Final, Complete 09/08/20 Wound Culture - Final, Complete Staphylococcus Capitis 09/08/20 Blood Culture - Preliminary, Resulted No Growth after 48 hours. All Specime... Assessment/Plan Date Seen The patient was seen on 09/11/20. Patient Summary Patient's condition has improved significantly since incision and drainage of the abscess. He'll be kept on antibiotics Plan/VTE VTE Prophylaxis Ordered?: No Plan Patient will be discharged home today with oral antibiotics. He'll be seen in the clinic in 1 or 2 weeks for follow-up. JORGE L JAMES MD Sep 11, 2020 09:23
--- NOTE | 2020-09-11 17:49 | DS.PDOC ---
Discharge Summary General Date of Admission Sep 08, 2020 at 23:33 Date of Discharge 09/11/20 Attending Physician: Nunu Hatfield MD Discharge Summary History of present illness: Patient is a 50-year-old male with no significant past medical history who is presented to the emergency room with left groin pain for the last 2-3 days. Patient reports that yesterday he began to notice swelling on the left side of the scrotum and groin. Patient noted that the area has become red and uncomfortable and has begun to experience some drainage/oozing. Patient denies any discomfort with urination or any penile discharge. Patient has not experience any prior skin infections and has not been on any antibiotics recently. Patient denies any headache but does experience some nausea and has had one episode of vomiting without any blood. Patient denies any chest pain, shortness of breath, cough, palpitations, abdominal pain, constipation or diarrhea. Patient reports his appetite has been fluctuating but denies any changes in his weight. HOSPITAL COURSE: Patient was taken to OR on 09/10/20 by urology for I&D of scrotal abscess, aspiration of spermatocele. Cultures were sent. Cultures from ER from scrotal wound grew out Staph capitis, sensitive to Vancomycin. After I&D wound was packed. By 09/11/20 swelling had much improved, WBC wnl, he remained afebrile. Urology suggested d/c with oral abx and f/u with his clinic in 2 weeks. Wound care instructions were given to patient. At time of discharge, patient denied increased pain, n/v/d, fevers, chills. Note: Official cultures from OR I&D are pending. This was explained to urology who was ok with us sending home with abx based off sensitivities from ER culture. They will follow in office. 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 DISCHARGE MEDICATIONS: Please see below. Physical exam: Vitals: Please see below General: Lying in bed, No acute distress, Speaking in full sentences, AAOx3 HEENT: NC, AT, PERRLA CVS: RRR, +S1S2 Lungs: Fair air entry bilaterally, No appreciable wheezing / rales / rhonchi Abdomen: Soft, Non-distended, Non-tender : Left groin with area of incision, induration, erythema and tenderness- packing in place- significanlty decreasead erythema, swelling and tenderness. . No incr drainage Extremities: No lower extremity edema, No calf tenderness Neuro: No focal motor or sensory deficit Skin: No visible rashes Labs: See below Imaging: Scrotal US 09/08: 1. Superior to left testicle, multiple anechoic structures are seen largest 1 is measuring 5.6 x 1.8 x 3.7 cm with some internal mobile debris. Findings may represent spur mild to see with superimposed infection, clinical correlation and follow-up is recommended. 2. Thickened left scrotal wall measuring 6.2 mm representing cellulitis. ASSESSMENT AND PLAN: #Left groin abscess / cellulitis -POD 2 incision and drainage left groin abscess -Pain controlled, erythema and induration improved, packing in place -Initial wound cx: Staph capitis -OR cultures pending. -BCx NG, MRSA neg -WBC wnl -Urology, Dr. Storey ok with discharge today with instructions on wound care. Will want to follow up in clinic in two weeks. #Left spermatocele -POD 2 spermatocele aspiration- appeared sterile -F/u as mentioned above with urology DISPOSITION: Discharged home today in improved condition. F/u with urology in 2 weeks. TIME SPENT ON DISCHARGE: Greater than 30 minutes. Vital Signs/I&Os Vital Signs Date Time Temp Pulse Resp B/P (MAP) Pulse Ox O2 Delivery O2 Flow Rate FiO2 09/11/20 06:00 97.3 67 18 124/84 (97) 96 Room Air 09/09/20 19:00 10 I&O- Last 24 Hours up to 6 AM 09/11/20 05:59 Intake Total 2220 ml Output Total 1525 ml Balance 695 ml Laboratory Data Labs 24H Laboratory Tests 2 09/11/20 05:25: Immature Granulocyte % (Auto) 0.5, Neutrophils (%) (Auto) 61.9, Lymphocytes (%) (Auto) 26.7, Monocytes (%) (Auto) 9.2H, Eosinophils (%) (Auto) 1.2, Basophils (%) (Auto) 0.5, Neutrophils # (Auto) 3.6, Lymphocytes # (Auto) 1.5, Monocytes # (Auto) 0.5, Eosinophils # (Auto) 0.1, Basophils # (Auto) 0.0, Nucleated Red Blood Cells % (auto) 0.0, Anion Gap 4L, Glomerular Filtration Rate > 60.0, Calcium Level 8.4L, Magnesium Level 2.2, C-Reactive Protein, Quantitative 1.62H 09/11/20 11:04: Vancomycin Level Trough 17.8 CBC/BMP Laboratory Tests 09/11/20 05:25 Microbiology Microbiology 09/09/20 Abscess Culture, Received Pending 09/09/20 Anaerobic Culture, Received Pending 09/08/20 Blood Culture - Preliminary, Resulted No Growth after 48 hours. All Specime... 09/08/20 Gram Stain - Final, Complete 09/08/20 Wound Culture - Final, Complete Staphylococcus Capitis 09/08/20 Blood Culture - Preliminary, Resulted No Growth after 48 hours. All Specime... Discharge Medications Scheduled Clindamycin Hcl (Clindamycin HCl) 150 Mg Capsule, 150 MG PO QID Saccharomyces Boulardii (Probiotic) 250 Mg Capsule, 250 MG PO BIDWM Scheduled PRN Ibuprofen (Ibuprofen) 200 Mg Tablet, 400 MG PO Q6H PRN for PAIN, (Reported) Allergies Coded Allergies: No Known Allergies (Unverified , 09/08/20) Nunu Hatfield MD Sep 11, 2020 17:49
== END 2020-09-11 13:15 | disposition home or self-care (01) | DRG 364 ==
LOC: M ED 19:22 → M ED INP 23:33 → ENRESERV 09-09 01:09 → M MSPAV 09-09 02:57
PROVIDERS: ADMIT Internal Medicine; ATTEND Internal Medicine
PROC: 0J9C0ZZ Drainage of Pelvic Region Subcutaneous Tissue and Fascia, Open Approach (ICD-10-PCS; principal; 2020-09-09 17:00)
DX: L02.214 Cutaneous abscess of groin (principal); N43.40 Spermatocele of epididymis, unspecified; L03.314 Cellulitis of groin

== ENCOUNTER 2020-09-28 20:55 | Emergency (ER) | payer OTHER ==
[~2020-09-28] VITALS: Ht 182.9 cm; Wt 82.4 kg
[~2020-09-28 20:55] MED LIST: CLIN150C14 PO; IBUP-1720 PO; PROB250C PO
[2020-09-29] MEDS ORDERED: BACT800T5 PO (00:11)
[2020-09-29] MEDS ORDERED: BACTRIM 160MG/800MG DS TAB PO ONE (00:15)
[2020-09-29 00:22] VITALS: BP 140/68
== END 2020-09-29 00:23 | disposition home or self-care (01) ==
LOC: M ED 20:55
DX: L02.214 Cutaneous abscess of groin (principal)

== ENCOUNTER → 2020-10-15 | Outpatient (CLI) | payer OTHER ==
[~2020-10-15] MED LIST changes: +BACT800T5 PO
--- NOTE | 2020-10-15 16:45 | REP ---
INDICATION: GROIN ABSCESS, PAIN IN LEFT TESTICLE. COMPARISON: None. TECHNIQUE: Axial noncontrast images through the pelvis with coronal and sagittal reformations. FINDINGS: Visualized portions of the small and large bowel are grossly unremarkable. Scattered sigmoid diverticula noted without acute diverticulitis. Normal bladder and age-appropriate prostate/seminal vesicles noted. No pelvic fluid or obvious adenopathy. Evaluation of the groin demonstrates small nonspecific inguinal lymph nodes. Visualized scrotum demonstrates moderate left hydrocele. There is no evidence for further abnormal fluid collection or abscess. Surrounding musculoskeletal structures are intact and normal. IMPRESSION: Moderate left hydrocele identified in the visualized scrotum. <Electronically signed by Marcelo Galindo > 10/15/20 [id number]
== END ==
LOC: M RAD 15:45
PROVIDERS: ATTEND Urology
DX: L02.214 Cutaneous abscess of groin (principal); N43.3 Hydrocele, unspecified

== ENCOUNTER 2021-04-05 22:30 | Observation (INO) | payer OTHER ==
[~2021-04-05] VITALS: Ht 182.9 cm; Wt 82.0 kg
[~2021-04-05 22:30] MED LIST changes: -CLIN150C14 PO; +CLIN150C15 PO
--- NOTE | 2021-04-05 22:54 | REPVR ---
PROCEDURE INFORMATION: Exam: CT Head Without Contrast Exam date and time: 04/05/2021 10:44 PM Age: 51 years old Clinical indication: Other: Stroke like smptoms; Additional info: Stroke like symptoms TECHNIQUE: Imaging protocol: Computed tomography of the head without contrast. Radiation optimization: All CT scans at this facility use at least one of these dose optimization techniques: automated exposure control; mA and/or kV adjustment per patient size (includes targeted exams where dose is matched to clinical indication); or iterative reconstruction. Other technique: STROKE PROTOCOL was implemented. COMPARISON: No relevant prior studies available. FINDINGS: Brain: There is no evidence of infarct, orozco-white matter differentiation is preserved. There is no hemorrhage or extra-axial collection. There is no mass. Cerebral ventricles: There is no hydrocephalus. Paranasal sinuses: Visualized sinuses are unremarkable. No fluid levels. Mastoid air cells: Visualized mastoid air cells are well aerated. Bones/joints: Unremarkable. No acute fracture. Soft tissues: Unremarkable. IMPRESSION: No intracranial lesion or injury ASSESSMENT: ASPECTS ([facility] Stroke Program Early CT Score) is 10. Electronically signed by: Sam Motley On 04/05/2021 22:54:10 PM
[2021-04-05 23:43] LABS: BASO # 0.1 10^3/uL (0.0-0.2); BASO % 0.8 % (0.0-1.0); EOS # 0.1 10^3/uL (0.0-0.5); EOS % 1.4 % (0.0-3.0); HEMOGLOBIN 15.8 g/dl (13.5-17.5); LYMPH # 1.8 10^3/uL (1.5-5.0); LYMPH % 26.8 % (24.0-44.0); MEAN CORPUSCULAR HEMOGLOBIN 33.5 pg (27.0-33.0); MEAN CORPUSCULAR HGB CONC 35.9 g/dl (32.0-36.5); MEAN CORPUSCULAR VOLUME 93.4 fl (80.0-96.0); MONO # 0.7 10^3/uL (0.0-0.8); MONO % 10.3 % (2.0-8.0); NEUTROPHILS % 60.2 % (36.0-66.0); PLATELET COUNT, AUTOMATED 240 10^3/uL (150-450); RED BLOOD COUNT 4.71 10^6/uL (4.30-6.10); WHITE BLOOD COUNT 6.6 10^3/uL (4.0-10.0)
--- NOTE | 2021-04-05 23:44 | REPVR ---
PROCEDURE INFORMATION: Exam: XR Chest Exam date and time: 04/05/2021 11:37 PM Age: 51 years old Clinical indication: Other: CVA TECHNIQUE: Imaging protocol: XR of the chest. Views: 1 view. COMPARISON: No relevant prior studies available. FINDINGS: Lungs: Unremarkable. No consolidation. Pleural spaces: Unremarkable. No pleural effusion. No pneumothorax. Heart/Mediastinum: Unremarkable. No cardiomegaly. Bones/joints: Unremarkable. IMPRESSION: No acute findings. Electronically signed by: Sam Motley On 04/05/2021 23:44:01 PM
[2021-04-06 00:03] LABS: CK-MB VALUE MASS < 1.0 NG/ML (<3.6); CPK CREATINE PHOSPHOKINASE 110 U/L (39-308); MB/CK RELATIVE INDEX 0.91 (< OR =4); TROPONIN I < 0.02 NG/ML (< 0.10)
[2021-04-06 02:21] LABS: RSV AMPLIFICATION NEGATIVE (NEGATIVE)
[2021-04-06] MEDS ORDERED: ACETAMINOPHEN TAB 650MG DOSE (2X325MG) PO PRN (02:50)
[2021-04-06] MEDS ORDERED: ASPIRIN 81 MG CHEW TABLET PO ONE (02:50)
--- NOTE | 2021-04-06 03:03 | HPEPDOC ---
General Date of Admission 04/06/21 Date of Service: Apr 06, 2021 Chief Complaint The patient is a 51-year-old male admitted with a reason for visit of Neuro Symp. Source: Patient History of Present Illness Patient is 51 years old male without significant past medical history presented to the hospital with right arm and right leg tingling and paresthesias. Patient stated that 2 days ago during his work he developed right arm and right leg paresthesia associated with weakness. His symptoms lasted around 20 minutes. Today in the morning patient developed the same symptoms again with more profound right leg weakness and tingling. The symptoms resolved after 30 minute s. In ER patient has normal blood pressure, no leukocytosis, negative troponin, creatinine 1.6. CT head negative for acute stroke or bleed Home Medications No Active Prescriptions or Reported Meds Allergies Coded Allergies: No Known Allergies (Unverified , 09/08/20) Past Medical History Medical History No significant past medical history Family History I personally reviewed family history and found not pertinent Social History * Smoker: Denies Alcohol: Denies Drugs: denies A-FIB/CHADSVASC A-FIB History Current/History of A-Fib/PAF?: No Current PO Anticoag Therapy: No Review of Systems Constitutional: Denies: Chills, Fever Eyes: Denies: Pain ENT: Denies: Head Aches Skin: Denies: Rash Pulmonary: Denies: Dyspnea Cardiovascular: Denies: Chest Pain Gastrointestinal: Denies: Nausea, Vomiting Genitourinary: Denies: Dysuria Hematologic: Denies: Bruising Endocrine: Denies: Polydipsia, Polyphagia Musculoskeletal: Denies: Neck Pain Neurological: Reports: Weakness, Numbness Psych: Reports: Mood Normal Physical Examination General Exam: Positive: Alert, Cooperative Eye Exam: Positive: PERRLA ENT Exam: Positive: Atraumatic Neck Exam: Positive: Supple; Negative: JVD Chest Exam: Positive: Clear to auscultation Heart Exam: Positive: Rate Normal Telemetry: Positive: No significant arrhythmia Abdomen Exam: Positive: Normal bowel sounds Extremity Exam: Negative: Clubbing, Cyanosis Skin Exam: Positive: Nl turgor and temperature Neuro Exam: Positive: Strength at 5/5 X4 ext, Cranial Nerves 3-12 NL, Other (Tingling of right arm and right leg) Psych Exam: Positive: Mental status NL Vital Signs Vital Signs Date Time Temp Pulse Resp B/P (MAP) Pulse Ox O2 Delivery O2 Flow Rate FiO2 04/06/21 01:30 67 121/79 (93) 98 Room Air 04/06/21 00:15 18 04/05/21 22:45 98.1 Laboratory Data Labs 24H Laboratory Tests 2 04/05/21 22:40: Immature Granulocyte % (Auto) 0.5, Neutrophils (%) (Auto) 60.2, Lymphocytes (%) (Auto) 26.8, Monocytes (%) (Auto) 10.3H, Eosinophils (%) (Auto) 1.4, Basophils (%) (Auto) 0.8, Neutrophils # (Auto) 4.0, Lymphocytes # (Auto) 1.8, Monocytes # (Auto) 0.7, Eosinophils # (Auto) 0.1, Basophils # (Auto) 0.1, Nucleated Red Blood Cells % (auto) 0.0, Activated Partial Thromboplast Time 30.0, Total Creatine Kinase 110, Creatine Kinase MB < 1.0, Creatine Kinase MB Relative Index 0.91, Troponin I < 0.02 04/06/21 00:36: POC Glucose (Misc Panel) 93, POC Sodium (Misc Panel) 142, POC Potassium (Misc Panel) 3.8, POC Chloride (Misc Panel) 104, POC Total CO2 (Misc Panel) 26.0, POC Blood Urea Nitrogen (Misc Panel 30H, POC Ionized Calcium (Misc Panel) 4.8, POC Creatinine (Misc Panel) 1.6H, POC Hematocrit (Misc Panel) 44.0 04/06/21 00:40: POC Prothrombin Time (Misc) 11.0L, POC INR (Misc) 0.9 04/06/21 01:08: Coronavirus (COVID-19)(PCR) NEGATIVE, Influenza Type A (RT-PCR) NEGATIVE, Influenza Type B (RT-PCR) NEGATIVE, Respiratory Syncytial Virus (PCR) NEGATIVE CBC/BMP Laboratory Tests 04/05/21 22:40 Assessment/Plan Patient is 51 years old male without significant past medical history presented to the hospital with right arm and right leg tingling and paresthesias. Patient stated that 2 days ago during his work he developed right arm and right leg paresthesia associated with weakness. His symptoms lasted around 20 minutes. Today in the morning patient developed the same symptoms again with more profound right leg weakness and tingling. The symptoms resolved after 30 minutes. In ER patient has normal blood pressure, no leukocytosis, negative troponin, creatinine 1.6. CT head negative for acute stroke or bleed Problems (1) TIA (transient ischemic attack) Status: Acute Problem Text: Most likely patient developed TIA CT head negative for acute bleed or stroke We will proceed with MRI, MRA, duplex ultrasound of carotid arteries Aspirin 325 mg once We will check cardiac risk profile Statin We will check echo (2) CHINO (acute kidney injury) Status: Acute Problem Text: Creatinine elevated 1.6 Most likely due to intravascular depletion secondary to dehydration IV fluid Continue to monitor Plan / VTE VTE Prophylaxis Ordered?: Yes MIKEY WONG DO Apr 06, 2021 03:03
[2021-04-06 03:13] LABS: CHOLESTEROL LEVEL 226 MG/DL (<200); CHOLESTEROL RISK RATIO 4.913 (<5); HDL CHOLESTEROL 46 MG/DL (>40); NON-HDL-C 180 MG/DL; TRIGLYCERIDES LEVEL 440 MG/DL (<150)
[2021-04-06] MEDS: SIMVASTATIN 20 MG TAB PO SCH ×2 (03:50→20:24)
[2021-04-06] MEDS: NS 1,000 ML IV SCH ×3 (03:54→20:24)
[2021-04-06 04:25] VITALS: BP 131/83
[2021-04-06 08:00] VITALS: BP 121/83
--- NOTE | 2021-04-06 08:30 | REP ---
INDICATION: Stroke COMPARISON: None. TECHNIQUE: Diaz scale and color Doppler evaluation using linear high frequency transducer Findings: FINDINGS: Two-dimensional diaz scale and color images demonstrate normal arterial lumen with laminar flow and no appreciable narrowing. Color Doppler interrogation demonstrates normal arterial wave patterns and velocities with no significant spectral broadening. Normal flow direction is appreciated in the bilateral vertebral arteries. ICA peak systolic velocity: Right 88.6 cm/s; Left 80.0 cm/s ICA diastolic velocity: Right 48.9 cm/s; Left 29.7 cm/s ECA peak systolic velocity: Right 89.9 cm/s; Left 78.7 cm/s CCA peak systolic velocity: Right 83.3 cm/s; Left 103.7 cm/s ICA/CCA ratio: Right 1.06 cm/s; Left X 0.77 cm/s IMPRESSION: No hemodynamically significant areas of narrowing or stenosis appreciated. Based on set standards narrowing falls within the less than 50% range. <Electronically signed by Marcelo Galindo > 04/06/21 [id number]
[2021-04-06] MEDS: ENOXAPARIN 40MG/0.4ML SYRINGE (J1650 PER 10MG) SC SCH (08:46)
[2021-04-06] MEDS: ASPIRIN 81 MG CHEW TABLET PO SCH (08:46)
--- NOTE | 2021-04-06 10:02 | REPVR ---
PROCEDURE INFORMATION: Exam: MR Head Without Contrast Exam date and time: 04/06/2021 9:48 AM Age: 51 years old Clinical indication: Numbness / parasthesia and weakness, extremity; Right. TECHNIQUE: Imaging protocol: MR of the head without contrast. COMPARISON: CT Head without contrast 04/05/2021 10:37 PM FINDINGS: Brain: Normal. No acute infarct. No hemorrhage. No significant white matter disease. No edema. Cerebral ventricles: Normal. No ventriculomegaly. Bones/joints: Unremarkable. Paranasal sinuses: Normal as visualized. No acute sinusitis. Mastoid air cells: Normal as visualized. No mastoid effusion. Orbital cavity: Unremarkable. Soft tissues: Unremarkable. IMPRESSION: No acute findings. Electronically signed by: Fan Morales On 04/06/2021 10:02:01 AM
--- NOTE | 2021-04-06 10:08 | REPVR ---
PROCEDURE INFORMATION: Exam: MRA Head Without Contrast; Arteriography Exam date and time: 04/06/2021 9:48 AM Age: 51 years old Clinical indication: Numbness and weakness; Patient HX: RT arm and face numbness; Additional info: Stroke TECHNIQUE: Imaging protocol: Magnetic resonance angiography head without contrast. Exam focused on the arteries. COMPARISON: CT Head without contrast 04/05/2021 10:37 PM FINDINGS: ANTERIOR CIRCULATION: Right internal carotid artery: Intracranial segment is patent with no significant stenosis. No aneurysm. Right middle cerebral artery: No occlusion or significant stenosis. No aneurysm. Right anterior cerebral artery: No occlusion or significant stenosis. No aneurysm. Left internal carotid artery: Intracranial segment is patent with no significant stenosis. No aneurysm. Left middle cerebral artery: No occlusion or significant stenosis. No aneurysm. Left anterior cerebral artery: No occlusion or significant stenosis. No aneurysm. POSTERIOR CIRCULATION: Right vertebral artery: No occlusion or significant stenosis. No aneurysm. Left vertebral artery: No occlusion or significant stenosis. No aneurysm. Basilar artery: No occlusion or significant stenosis. No aneurysm. Right posterior cerebral artery: There is origin of the right posterior cerebral artery. Left posterior cerebral artery: There is origin of the left posterior cerebral artery. IMPRESSION: No stenosis or occlusion. Electronically signed by: Fan Morales On 04/06/2021 10:07:59 AM
--- NOTE | 2021-04-06 10:49 | IPNPDOC ---
Subjective Date Seen The patient was seen on 04/06/21. Subjective Chief Complaint/HPI Mr. Jaffe is a 51 year old male who is here for TIA. Last night he had another episode of tingling and paresthesia which resolved after 30 minutes. Otherwise, this morning, he denies any chest pain or dyspnea. No events on telemetry Objective Physical Examination General Exam: Positive: Alert, Cooperative Eye Exam: Negative: Sclera icteric ENT Exam: Positive: Atraumatic Neck Exam: Positive: Supple Chest Exam: Positive: Clear to auscultation Heart Exam: Positive: Rate Normal, Regular Rhythm Telemetry: Positive: No significant arrhythmia Abdomen Exam: Positive: Normal bowel sounds, Soft; Negative: Tenderness Extremity Exam: Negative: Clubbing, Cyanosis Neuro Exam: Positive: Strength at 5/5 X4 ext, Cranial Nerves 3-12 NL, Other (Tingling of right arm and right leg) Psych Exam: Positive: Mental status NL Assessment /Plan Assessment Mr. Jaffe is a 51 year old male who is here for TIA. MRI, MRA, and US carotids are negative. No events on telemetry at this time. Will order echocardiogram to further evaluate. Otherwise, patient has CHINO which may be from dehydration. Continue to monitor renal function. Plan/VTE VTE Prophylaxis Ordered?: Yes Plan 1. TIA -MRI, MRA, and US carotids negative -Telemetry negative for arrhythmia -Echocardiogram ordered -Lipids are elevated, continue statin -Continue aspirin 2. CHINO -Creatinine elevated at 1.6 on admission -Baseline creatinine around 1 -Ordered for renal US and UA -IV hydration 3. DVT ppx -Lovenox Disposition: Pending echocardiogram and improvement in renal function VS, I&O, 24H, [place] Vital Signs/I&O Vital Signs Date Time Temp Pulse Resp B/P (MAP) Pulse Ox O2 Delivery O2 Flow Rate FiO2 04/06/21 04:25 97.4 65 17 131/83 99 Room Air I&O- Last 24 Hours up to 6 AM 04/06/21 06:00 Intake Total 25 ml Balance 25 ml Laboratory Data 24H LABS Laboratory Tests 2 04/05/21 22:40: Immature Granulocyte % (Auto) 0.5, Neutrophils (%) (Auto) 60.2, Lymphocytes (%) (Auto) 26.8, Monocytes (%) (Auto) 10.3H, Eosinophils (%) (Auto) 1.4, Basophils (%) (Auto) 0.8, Neutrophils # (Auto) 4.0, Lymphocytes # (Auto) 1.8, Monocytes # (Auto) 0.7, Eosinophils # (Auto) 0.1, Basophils # (Auto) 0.1, Nucleated Red Blood Cells % (auto) 0.0, Activated Partial Thromboplast Time 30.0, Total Creatine Kinase 110, Creatine Kinase MB < 1.0, Creatine Kinase MB Relative Index 0.91, Troponin I < 0.02, Triglycerides Level 440H, Total Cholesterol 226H, LDL Cholesterol , Non-HDL Cholesterol (LDL + VLDL) 180, Total HDL Cholesterol 46, Cholesterol/HDL Ratio 4.913 04/06/21 00:36: POC Glucose (Misc Panel) 93, POC Sodium (Misc Panel) 142, POC Potassium (Misc Panel) 3.8, POC Chloride (Misc Panel) 104, POC Total CO2 (Misc Panel) 26.0, POC Blood Urea Nitrogen (Misc Panel 30H, POC Ionized Calcium (Misc Panel) 4.8, POC Creatinine (Misc Panel) 1.6H, POC Hematocrit (Misc Panel) 44.0 04/06/21 00:40: POC Prothrombin Time (Misc) 11.0L, POC INR (Misc) 0.9 04/06/21 01:08: Coronavirus (COVID-19)(PCR) NEGATIVE, Influenza Type A (RT-PCR) NEGATIVE, Influenza Type B (RT-PCR) NEGATIVE, Respiratory Syncytial Virus (PCR) NEGATIVE CBC/BMP Laboratory Tests 04/05/21 22:40 JOHANA GONZALES DO Apr 06, 2021 10:49
[2021-04-06 12:00] VITALS: BP 130/78
[2021-04-06 14:00] VITALS: BP 121/84
[2021-04-06 16:00] VITALS: BP 120/84
[2021-04-06 16:27] LABS: APPEARANCE, URINE CLEAR (CLEAR); BACTERIA, URINE AUTO NEGATIVE (NEGATIVE); BILIRUBIN, URINE AUTO NEGATIVE (NEGATIVE); BLOOD, URINE BLOOD NEGATIVE (NEGATIVE); COLOR, URINE YELLOW (YELLOW); GLUCOSE, URINE (UA) AUTO 1+ mg/dL (NEGATIVE); KETONE, URINE AUTO NEGATIVE (NEGATIVE); LEUKOCYTE ESTERASE, URINE AUTO NEGATIVE (NEGATIVE); MUCUS, URINE SMALL (NEGATIVE); NITRITE, URINE AUTO NEGATIVE (NEGATIVE); PROTEIN, URINE AUTO NEGATIVE (NEGATIVE); RBC, URINE AUTO 0 /HPF (0-3); SPECIFIC GRAVITY URINE AUTO 1.019 (1.002-1.035); SQUAMOUS EPITHELIAL CELL UR AU 0 /HPF (0-6); UROBILINOGEN, URINE AUTO 0.2 mg/dL (0.0-2.0); WBC, URINE AUTO 0 /HPF (0-3)
[2021-04-06 22:00] VITALS: BP 115/70
[2021-04-07 06:00] VITALS: BP 102/58
[2021-04-07 06:03] LABS: HEMATOCRIT 40.9 % (42.0-52.0); HEMOGLOBIN 14.6 g/dl (13.5-17.5); MEAN CORPUSCULAR HEMOGLOBIN 33.1 pg (27.0-33.0); MEAN CORPUSCULAR HGB CONC 35.7 g/dl (32.0-36.5); MEAN CORPUSCULAR VOLUME 92.7 fl (80.0-96.0); PLATELET COUNT, AUTOMATED 188 10^3/uL (150-450); RED BLOOD COUNT 4.41 10^6/uL (4.30-6.10); WHITE BLOOD COUNT 4.7 10^3/uL (4.0-10.0)
[2021-04-07 06:32] LABS: ALBUMIN 3.3 GM/DL (3.2-5.2); ALT/SGPT 82 U/L (12-78); BILIRUBIN,TOTAL 0.6 MG/DL (0.2-1.0); BLOOD UREA NITROGEN 20 MG/DL (7-18); CARBON DIOXIDE LEVEL 27 MEQ/L (21-32); CHLORIDE LEVEL 110 MEQ/L (98-107); CREATININE FOR GFR 0.98 MG/DL (0.70-1.30); GLOMERULAR FILTRATION RATE > 60.0 (>56); GLUCOSE, FASTING 91 MG/DL (70-100); MAGNESIUM LEVEL 2.2 MG/DL (1.8-2.4); POTASSIUM SERUM 4.1 MEQ/L (3.5-5.1); SODIUM LEVEL 141 MEQ/L (136-145); TOTAL PROTEIN 5.5 GM/DL (6.4-8.2)
[2021-04-07 06:37] LABS: HEMOGLOBIN A1c 5.1 %
[2021-04-07] MEDS: ENOXAPARIN 40MG/0.4ML SYRINGE (J1650 PER 10MG) SC SCH (07:56)
[2021-04-07] MEDS: ASPIRIN 81 MG CHEW TABLET PO SCH (07:57)
--- NOTE | 2021-04-07 08:16 | REP ---
INDICATION: CHINO. COMPARISON: None. FINDINGS: Multiple ultrasonographic images of the right kidney show the right kidney to measure 10.5 x 5.1 x 4.3 cm. The renal cortical echotexture is unremarkable. There are no masses. There is good corticomedullary differentiation. There is no hydronephrosis. There are no perinephric fluid collections. Multiple ultrasonographic images of the left kidney show the left kidney to measure 11.6 x 4.4 x 4.9 cm. The renal cortical echotexture is unremarkable. There are no masses. There is good corticomedullary differentiation. There is no hydronephrosis. There are no perinephric fluid collections. There is mild thinning of the upper pole renal cortex. IMPRESSION: There is mild thinning of the upper pole left renal cortex likely secondary to chronic scarring. The examination is otherwise unremarkable.. <Electronically signed by Facundo Hua > 04/06/21 [id number]
[2021-04-07] MEDS ORDERED: SIMV20TA22 PO (13:00)
[2021-04-07] MEDS ORDERED: ASPI81CH8 PO (13:00)
[2021-04-07] MEDS ORDERED: SIMV40TA20 PO (15:19)
--- NOTE | 2021-04-07 17:54 | ECGEPIP ---
[facility] - ED Test Date: 2021-04-06 Pat Name: GABRIEL QUIROZ Department: Room: [place] [address] Gender: Male [employer]ave [employer]: LUI : 1970 Requested By: ALIZA Blum Order Number: [id number] Reading MD: Kiley Brown Measurements Intervals [place] Rate: 65 P: 61 ND: 138 QRS: 40 QRSD: 76 T: 34 QT: 408 QTc: 424 Interpretive Statements Normal sinus rhythm with sinus arrhythmia NSTTW abnormalities No prior Electronically Signed on 04-07-2021 17:53:41 EDT by Kiley Brown
--- NOTE | 2021-04-07 18:23 | DS.PDOC ---
Discharge Summary General Date of Admission Apr 05, 2021 at 22:31 Date of Discharge April 07, 2021 Discharge Summary PROCEDURES PERFORMED DURING STAY: None ADMITTING DIAGNOSES: 1. TIA 2. CHINO DISCHARGE DIAGNOSES: 1. TIA 2. CHINO COMPLICATIONS/CHIEF COMPLAINT: Tia (Transient Ischemic Attack). HISTORY OF PRESENT ILLNESS: Copied from admitting provider's H&P " Patient is 51 years old male without significant past medical history presented to the hospital with right arm and right leg tingling and paresthes ias. Patient stated that 2 days ago during his work he developed right arm and right leg paresthesia associated with weakness. His symptoms lasted around 20 minutes. Today in the morning patient developed the same symptoms again with more profound right leg weakness and tingling. The symptoms resolved after 30 minutes. In ER patient has normal blood pressure, no leukocytosis, negative troponin, creatinine 1.6. CT head negative for acute stroke or bleed " HOSPITAL COURSE: During hospitalization, patient had reoccurrence of the paresthesias. No events were seen on the telemetry. MRI brain, MRA head, and US carotids were negative. During entire hospitalization, no events on telemetry. HbA1c was 5.1, but cholesterol was elevated at 226 and triglycerides were 440. Patient was put on aspirin and statin. Spoke with neurology, Dr. Isabel. Agree with the statin and aspirin. No further work up needed at this time, and patient could follow up with neurology. Otherwise, patient was concern for Lyme disease as he was walking in the [place]. Lyme screen was ordered. This morning, he feels well and felt ready for home. He was subsequently discharged home. DISCHARGE MEDICATIONS: Please see below. ALLERGIES: Please see below. PHYSICAL EXAMINATION ON DISCHARGE: VITAL SIGNS: Please see below. GENERAL: Comfortable, in no apparent distress. HEENT: Head normocephalic/atraumatic, EOMI, sclera clear. NECK: Supple. RESPIRATORY: Lungs clear to auscultation bilaterally, no rales, wheeze or rhonchi. CARDIOVASCULAR: Regular rate and rhythm. ABDOMEN: Soft, nontender, no guarding or rebound tenderness. Normal bowel sounds. MUSCLE SKELETAL: Muscle strength 5/5 in all extremities. NEUROLOGICAL: CN 312 grossly intact, no focal deficits noted. PSYCHOLOGICAL: Normal mood and affect LABORATORY DATA: Please see below. IMAGING: Radiologist interpretation MRI brain No acute findings. MRA head No stenosis or occlusion. Ultrasound carotids No hemodynamically significant areas of narrowing or stenosis appreciated. Based on set standards narrowing falls within the less than 50% range. Renal ultrasound There is mild thinning of the upper pole left renal cortex likely secondary to chronic scarring. The examination is otherwise unremarkable PROGNOSIS: Good ACTIVITY: As tolerated. DIET: As tolerated DISCHARGE PLAN: Home DISPOSITION: 01 Home, Self-Care. DISCHARGE INSTRUCTIONS: 1. Follow-up with PCP in 1 week 2. Referral to neurology DISCHARGE CONDITION: Stable. Total time spent on discharge planning, discharge summary, medication reconciliation: 40 minutes Vital Signs/I&Os Vital Signs Date Time Temp Pulse Resp B/P (MAP) Pulse Ox O2 Delivery O2 Flow Rate FiO2 04/07/21 06:00 97.2 70 17 102/58 (73) 98 Room Air I&O- Last 24 Hours up to 6 AM 04/07/21 06:00 Intake Total 2570 ml Balance 2570 ml Laboratory Data Labs 24H Laboratory Tests 2 04/06/21 22:40: 04/07/21 05:41: Nucleated Red Blood Cells % (auto) 0.0, Anion Gap 4L, Glomerular Filtration Rate > 60.0, Estimated Mean Plasma Glucose 100, Hemoglobin A1c 5.1, Calcium Level 8.0L, Magnesium Level 2.2, Total Bilirubin 0.6, Aspartate Amino Transf (AST/SGOT) 40H, Alanine Aminotransferase (ALT/SGPT) 82H, Alkaline Phosphatase 80, Total Protein 5.5L, Albumin 3.3, Albumin/Globulin Ratio 1.5 CBC/BMP Laboratory Tests 04/07/21 05:41 Discharge Medications Scheduled Aspirin (Children's Aspirin) 81 Mg Tab.chew, 81 MG PO DAILY Simvastatin (Simvastatin) 40 Mg Tablet, 40 MG PO QHS Allergies Coded Allergies: No Known Allergies (Unverified , 09/08/20) JOHANA GONZALES DO Apr 07, 2021 18:23
--- NOTE | 2021-04-08 08:12 | ECHO ---
ECHOCARDIOGRAM DATE OF PROCEDURE: 04/07/2021 Age: 51 Gender: M Height: 72 inches Weight: 180 pounds Body Surface Area: 2.04 meters squared PATIENT LOCATION: [address] - room [facility] REFERRING PHYSICIAN: Dr. Mix INDICATION: Transient ischemic attack (TIA) MEASUREMENTS: 2D Measurements: RV - 3.1 cm LV - 4.4 cm Septum 1.0 cm Posterior wall 1.0 cm Aortic Root 3.4 cm LA - 3.4 cm LVEF 55% Doppler Measurements: AV - 0.82 m/s LVOT - 0.75 m/s LVOT diameter 2.0 cm MV-E 52, A 37, E/A ratio 1.4 Early mitral deceleration time 224 msec E prime medial 8.4, A prime medial 12, E prime lateral 9.8 PV - 0.75 m/s Pulmonary artery acceleration time 127 msec PASP 24 mmHg IVC - 1.5 cm COMMENTS: Normal sinus rhythm without interventricular conduction disturbance. M-mode and 2-dimensional echocardiography was performed with pulse, continuous wave, color flow and tissue Doppler studies. Saline contrast study was also performed from the apical four-chamber projection. Normal left ventricular size, wall thickness and wall motion. Normal left atrial size and Doppler assessment of left ventricular (LV) diastolic function and estimated mean left atrial pressure. Normal right heart chamber size and motion, and estimated pulmonary arterial pressure. Normal inferior vena cava (IVC) size and collapse against an elevated central venous pressure. Normal aortic dimensions. Normal-appearing and functioning valvular structures with very mild tricuspid insufficiency. No apparent cardiac mass or pericardial effusion. Saline contrast study was performed from the apical 4-chamber projection using a large forearm vein and bolus-agitated saline. Adequate opacification was observed of the right heart structures without evidence of contrast entering the left ventricle.
[2021-04-08 16:08] LABS: Lyme Disease IgG/IgM Antibodie <0.91 ISR (0.00-0.90); Lyme Disease IgM Ab Quantitati <0.80 index (0.00-0.79)
== END 2021-04-07 15:20 | disposition home or self-care (01) ==
LOC: M ED 22:30 → M ED INP 22:31 → ENRESERV 04-06 03:25 → M MSPAV 04-06 04:23
PROVIDERS: ADMIT Internal Medicine; ATTEND Internal Medicine
DX: G45.9 Transient cerebral ischemic attack, unspecified (principal); N17.9 Acute kidney failure, unspecified; Z79.82 Long term (current) use of aspirin; Z79.899 Other long term (current) drug therapy
CPT/HCPCS: 36415; 70450; 70544; 70551; 71045; 76775; 80047; 80053; 80061; 81001; 82550; 82553; 83036; 83735; 85025; 85027; 85730; 86617; 87631; 93005; 93041; 93306; 93880; 94760; 96361; 96372; 96374; 99285; J1650